=== PATIENT | male | born 1980 | race Caucasian/White ===

== ENCOUNTER 2021-11-06 19:26 | Emergency (ER) | payer OTHER, BC ==
[2021-11-06] MEDS ORDERED: IBUPROFEN 400 MG TAB ONE (20:30)
--- NOTE | 2021-11-06 21:26 | RAD REPORT ---
EXAM DESCRIPTION: RAD - Hand Right 3 View - 11/06/2021 9:17 pm CLINICAL HISTORY: PAIN COMPARISON: No comparisons FINDINGS/IMPRESSION: No acute fracture. No malalignment. No significant focal degenerative changes.
--- NOTE | 2021-11-06 21:38 | ER ---
Nurse's Notes [facility] Name: Kevin Camacho Age: 41 yrs Sex: Male : 1980 Arrival Date: 11/06/2021 Time: 19:41 Bed 9 Private MD: Diagnosis: Contusion of right hand;Contusion of right wrist Presentation: 11/06 19:48 Chief complaint: Patient states: Pain and swelling to right hand after hit with live lp1 oak tree while splitting tree with tool; limited ROM in right wrist; occurred about 5 days ago. Coronavirus screen: At this time, the client does not indicate any symptoms associated with coronavirus-19. Ebola Screen: No symptoms or risks identified at this time. Risk Assessment: Do you want to hurt yourself or someone else? Patient reports no desire to harm self or others. Onset of symptoms was November 06, 2021. 19:48 Method Of Arrival: Ambulatory lp1 19:48 Acuity: LUIS 4 lp1 20:08 Initial Sepsis Screen: Does the patient meet any 2 criteria? No. Patient's initial kd3 sepsis screen is negative. Does the patient have a suspected source of infection? No. Patient's initial sepsis screen is negative. Triage Assessment: 19:50 Derm: Musculoskeletal: Swelling present in dorsum of right hand Reports pain in right lp1 wrist. 20:08 General: Appears in no apparent distress. Behavior is calm, cooperative. kd3 Historical: - Allergies: 19:49 No Known Allergies; lp1 - Home Meds: 19:49 None [Active]; lp1 - PMHx: 19:49 None; lp1 - PSHx: 19:49 None; lp1 - Immunization history:: Adult Immunizations up to date. - Social history:: Smoking status: Patient reports the use of cigarette tobacco products, smokes one pack cigarettes per day. Screenin:07 Abuse screen: Denies threats or abuse. Denies injuries from another. Nutritional kd3 screening: No deficits noted. Tuberculosis screening: No symptoms or risk factors identified. Fall Risk None identified. Assessment: 20:06 General: Appears in no apparent distress. Behavior is calm, cooperative, appropriate kd3 for age. Neuro: Level of Consciousness is awake, alert, obeys commands, Oriented to person, place, time, situation. Cardiovascular: Patient's skin is warm and dry. Respiratory: Airway is patent Trachea midline Respiratory effort is even, unlabored, Respiratory pattern is regular. Injury Description: Bruise sustained to right hand. 20:31 Reassessment: No changes from previously documented assessment. kd3 22:02 Reassessment: No changes from previously documented assessment. kd3 Vital Signs: 19:48 Weight 90.72 kg (R); Height 6 ft. 0 in. (182.88 cm); Pain 3/10; lp1 20:06 BP 125 / 85; Pulse 78; Resp 17; Temp 98.3; Pulse Ox 99% on R/A; Pain 4/10; kd3 22:02 BP 122 / 82; Pulse 72; Resp 16; Pulse Ox 99% on R/A; kd3 19:48 Body Mass Index 27.12 (90.72 kg, 182.88 cm) lp1 ED Course: 19:41 Patient arrived in ED. mr 19:46 Amarjit Vargas PA is PHCP. cp 19:46 Amarjit Doherty MD is Attending Physician. cp 19:49 Triage completed. lp1 19:50 Arm band placed on. lp1 19:55 Jack Barajas, RN is Primary Nurse. jb4 20:07 Patient has correct armband on for positive identification. Call light in reach. kd3 20:43 Primary Nurse role handed off by Jack Barajas, BUBBA kd3 20:43 Nolvia Agudelo, BUBBA is Primary Nurse. kd3 21:19 XRAY Hand RIGHT 3 View In Process Unspecified. EDMS Administered Medications: 20:31 Drug: Ibuprofen 800 mg Route: PO; kd3 22:02 Follow up: Response: No adverse reaction; Pain is decreased kd3 Outcome: 21:38 Discharge ordered by . cp 22:03 Patient left the ED. kd3 Signatures: Dispatcher [employer] EDMS Marie Otoole Liz Bower RN RN lp1 Amarjit Vargas PA PA cp Jack Barajas, BUBBA MAC jb4 Nolvia Agudelo RN RN kd3
--- NOTE | 2021-11-06 21:39 | EDPHYS ---
Physician Documentation [facility] Name: Kevin Camacho Age: 41 yrs Sex: Male : 1980 Arrival Date: 11/06/2021 Time: 19:41 Bed 9 Private MD: ED Physician Amarjit Doherty HPI: 11/06 20:10 This 41 yrs old Male presents to ER via Ambulatory with complaints of Hand Injury. cp 20:10 The patient or guardian reports injury, pain, swelling, tenderness. The complaints cp affect the dorsum of right hand and dorsum of right wrist. Context: resulted from a direct blow, piece of wood. Onset: The symptoms/episode began/occurred 5 day(s) ago. Associated signs and symptoms: The patient has no apparent associated signs or symptoms. Historical: - Allergies: 19:49 No Known Allergies; lp1 - Home Meds: 19:49 None [Active]; lp1 - PMHx: 19:49 None; lp1 - PSHx: 19:49 None; lp1 - Immunization history:: Adult Immunizations up to date. - Social history:: Smoking status: Patient reports the use of cigarette tobacco products, smokes one pack cigarettes per day. ROS: 20:15 MS/extremity: Positive for pain, swelling, tenderness, of the dorsum of right hand and cp dorsum of wrist, Negative for decreased range of motion, deformity, paresthesias. 20:15 Constitutional: Negative for body aches, chills, fever, poor PO intake. cp 20:15 Neck: Negative for pain with movement, pain at rest, stiffness. 20:15 Cardiovascular: Negative for chest pain. 20:15 Respiratory: Negative for cough, shortness of breath, wheezing. 20:15 Abdomen/GI: Negative for abdominal pain, nausea, vomiting, and diarrhea. 20:15 Back: Negative for pain at rest, pain with movement. 20:15 Neuro: Negative for altered mental status, headache, numbness, weakness. 20:15 All other systems are negative. Exam: 20:20 Constitutional: The patient appears in no acute distress, alert, awake, non-toxic, well cp developed, well nourished. 20:20 Musculoskeletal/extremity: Extremities: grossly normal except: noted in the dorsum of right hand and dorsum of right wrist: pain, swelling, tenderness to palpation noted radial side, There is no evidence of decreased ROM, deformity, ROM: limited active range of motion due to pain, in the right wrist, Perfusion: the extremity is normally perfused throughout, Sensation intact. 20:20 Skin: cellulitis, is not appreciated, no rash present. Vital Signs: 19:48 Weight 90.72 kg (R); Height 6 ft. 0 in. (182.88 cm); Pain 3/10; lp1 20:06 BP 125 / 85; Pulse 78; Resp 17; Temp 98.3; Pulse Ox 99% on R/A; Pain 4/10; kd3 22:02 BP 122 / 82; Pulse 72; Resp 16; Pulse Ox 99% on R/A; kd3 19:48 Body Mass Index 27.12 (90.72 kg, 182.88 cm) lp1 MDM: 19:47 Patient medically screened. mayte 21:12 Test interpretation: by ED physician or midlevel provider: xrays right hand negative cp for fracture. 21:37 Data reviewed: vital signs, nurses notes, radiologic studies, plain films. cp 21:37 Differential diagnosis: dislocation, closed fracture, contusion, cellulitis. cp Counseling: I had a detailed discussion with the patient and/or guardian regarding: the historical points, exam findings, and any diagnostic results supporting the discharge/admit diagnosis, radiology results, to return to the emergency department if symptoms worsen or persist or if there are any questions or concerns that arise at home. Response to treatment: the patient's symptoms have markedly improved after treatment, and as a result, I will discharge patient. 11/06 20:05 Order name: XRAY Hand RIGHT 3 View; Complete Time: 21:28 cp 11/06 21:28 Interpretation: Report reviewed. cp 11/06 21:37 Order name: Wrist Splint; Complete Time: 21:56 cp Administered Medications: 20:31 Drug: Ibuprofen 800 mg Route: PO; kd3 22:02 Follow up: Response: No adverse reaction; Pain is decreased kd3 Disposition Summary: 11/06/21 21:38 Discharge Ordered Location: Home cp Problem: new cp Symptoms: have improved cp Condition: Stable cp Diagnosis - Contusion of right hand cp - Contusion of right wrist cp Followup: cp - With: Private Physician - When: 1 week - Reason: Worsening of condition Discharge Instructions: - Discharge Summary Sheet cp - Hand Contusion cp - Wrist Pain, Adult cp - Wrist Splint, Adult cp Forms: - Medication Reconciliation Form cp - Thank You Letter cp - Antibiotic Education cp - Prescription Opioid Use cp Prescriptions: - Ibuprofen 800 mg Oral Tablet - take 1 tablet by ORAL route every 8 hours As needed take with food; 30 tablet; cp Refills: 0, Product Selection Permitted Addendum: 11/08/2021 07:17 Co-signature as Attending Physician, Amarjit Doherty MD I agree with the assessment and c dove plan of care. Signatures: Dispatcher [employer] EDAmarjit Roca MD MD cha Pena, Laura, RN RN lp1 Amarjit Vargas PA PA Nolvia Rg, RN RN kd3 Corrections: (The following items were deleted from the chart) 11/07 21:07 21:05 Constitutional: The patient appears in no acute distress, alert, awake, cp non-toxic, well developed, well nourished, cp 21:07 21:05 Musculoskeletal/extremity: Extremities: grossly normal except: noted in the cp dorsum of right hand and dorsum of right wrist: pain, swelling, tenderness to palpation noted radial side, There is no evidence of decreased ROM, deformity, ROM: limited active range of motion due to pain, in the right wrist, Perfusion: the extremity is normally perfused throughout, Sensation intact. cp 21: 21:05 Skin: cellulitis, is not appreciated, no rash present. cp cp
[2021-11-07 02:58] VITALS: TEMP 98.3; O2SAT 99
[2021-11-07 02:59] VITALS: BP 122/82
== END 2021-11-06 22:03 | disposition home or self-care (01) ==
LOC: ER 19:26
DX: S60.221A Contusion of right hand, initial encounter (principal); S60.211A Contusion of right wrist, initial encounter; W22.8XXA Striking against or struck by other objects, initial encounter; F17.210 Nicotine dependence, cigarettes, uncomplicated
CPT/HCPCS: 99283

== ENCOUNTER 2024-02-11 10:41 | Emergency (ER) | payer BC, OTHER ==
--- NOTE | 2024-02-11 11:58 | RAD REPORT ---
EXAM DESCRIPTION: RAD - Knee Left 3 View - 02/11/2024 11:46 am CLINICAL HISTORY: laceration;Pain COMPARISON: No comparisons TECHNIQUE: Left knee, 3 views. FINDINGS: No fracture, dislocation or periosteal reaction.No joint effusion seen. No joint space cindy rowing. No soft tissue abnormality. Clinical concerns for internal derangement or occult bony injury could be further assessed with MR im aging. IMPRESSION: Negative left knee.
[2024-02-11] MEDS ORDERED: LIDOCAINE 2% W/EPI 1:200,000 MPF 20 ML VIAL IM ONE (12:13)
[2024-02-11] MEDS ORDERED: TDAP (DIPHTH,PERTUSS(ACELL),TET VAC) 0.5 ML VIAL IMVAC ONE (12:13)
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
[2024-02-11 17:21] VITALS: TEMP 97.1
[2024-02-11 17:23] VITALS: BP 129/79; O2SAT 99
== END 2024-02-11 13:13 | disposition home or self-care (01) ==
LOC: ER 10:41
PROC: 0HQLXZZ Repair Left Lower Leg Skin, External Approach (ICD-10-PCS; principal; 2024-02-11)
DX: S81.812A Laceration without foreign body, left lower leg, initial encounter (principal)
CPT/HCPCS: 90471; 99284